=== PATIENT | male | born 1995 | race Caucasian/White ===

== ENCOUNTER 2019-01-16 01:52 | Emergency (ER) | payer SELFPAY ==
[~2019-01-16] VITALS: Ht 185.4 cm; Wt 118.4 kg
[2019-01-16 01:57] VITALS: BP 135/86; Ht 185.4 cm; Wt 118.4 kg
== END 2019-01-16 03:32 | disposition left against medical advice (07) ==
LOC: ED 01:52
DX: Z53.21 Procedure and treatment not carried out due to patient leaving prior to being seen by health care provider (principal)

== ENCOUNTER 2019-12-10 02:16 | Emergency (ER) | payer MEDICAID ==
[~2019-12-10] VITALS: Ht 185.4 cm; Wt 142.0 kg
[2019-12-10 02:32] VITALS: Ht 185.4 cm; Wt 142.0 kg
[2019-12-10 03:14] VITALS: BP 130/75
== END 2019-12-10 03:14 | disposition home or self-care (01) ==
LOC: ED 02:16
DX: L91.8 Other hypertrophic disorders of the skin (principal)

== ENCOUNTER 2020-09-11 13:04 | Emergency (ER) | payer MEDICAID ==
[~2020-09-11] VITALS: Ht 182.9 cm; Wt 145.6 kg
[2020-09-11 13:14] VITALS: Ht 182.9 cm; Wt 145.6 kg
[2020-09-11] MEDS ORDERED: MOT600 PO (13:28)
[2020-09-11] MEDS ORDERED: AMOXICILLIN500 M1 PO (13:28)
[2020-09-11] MEDS ORDERED: ACETAMINOPHEN-H1 TA1 PO (13:28)
[2020-09-11 13:43] VITALS: BP 147/86
== END 2020-09-11 13:43 | disposition home or self-care (01) ==
LOC: ED 13:04
DX: K08.89 Other specified disorders of teeth and supporting structures (principal)